=== PATIENT | male | born 2005 | race African-American/Black ===

== ENCOUNTER 2023-02-25 20:05 | Emergency (ER) | payer MEDICAID, OTHER ==
[~2023-02-25] VITALS: Ht 172.7 cm; Wt 63.7 kg
[2023-02-25 20:13] VITALS: TEMP 98.9; O2SAT 99
[2023-02-25 20:42] LABS: CLARITY URINE CLEAR (CLEAR); COLOR URINE YELLOW (YELLOW); KETONES URINE 2+ (NEGATIVE); LEUKOCYTE ESTERASE URINE NEGATIVE (NEGATIVE); NITRITE URINE NEGATIVE (NEGATIVE); OCCULT BLOOD URINE NEGATIVE (NEGATIVE); PROTEIN URINE 1+ (NEGATIVE); SPECIFIC GRAVITY URINE 1.035 (1.005-1.030)
[2023-02-25 21:10] LABS: BASOPHILS % 0.8 % (0.0-2.0); EOSINOPHILS % 0.9 % (0.0-5.0); HEMOGLOBIN. 14.6 g/dL (14.0-18.0); LYMPHOCYTES % 27.8 % (20.0-50.0); MEAN CORPUSCULAR HEMOGLOBIN 32.2 pg (28.0-32.0); MEAN CORPUSCULAR VOLUME 92.4 fL (80.0-94.0); MEAN PLATELET VOLUME 7.5 fl (7.4-10.4); MONOCYTES % 8.5 % (2.0-8.0); PLATELET 217 x1000/uL (130-400); RED BLOOD CELL COUNT 4.55 mill/uL (4.7-6.1); RED CELL DISTRIBUTION WIDTH 13.7 % (11.6-14.6)
[2023-02-25 21:11] LABS: CHLORIDE 100 mEq/L (98-107)
[2023-02-25] MEDS ORDERED: ONDANSETRON HCL 4MG/2ML INJ IM ONE (23:45)
[2023-02-25] MEDS ORDERED: KETOROLAC 30MG/ML VIAL IM ONE (23:45)
[2023-02-25] MEDS ORDERED: FAMOTIDINE 20MG TABLET PO ONE (23:45)
[2023-02-26] MEDS ORDERED: FAMO-135 MT (00:12)
[2023-02-26 00:37] VITALS: BP 140/81; PULSE 76; RESP 18
[2023-02-27] MEDS ORDERED: FAMO-135 MT (03:10)
== END 2023-02-26 00:54 | disposition home or self-care (01) ==
LOC: ER 20:17
DX: R06.02 Shortness of breath (principal); R11.2 Nausea with vomiting, unspecified; R19.7 Diarrhea, unspecified; Z20.822 Contact with and (suspected) exposure to COVID-19
CPT/HCPCS: 99284; 71045; 80053; 81003; 83690; 85025; 36415; 87426; 96372; C9803; J1885; J2405

== ENCOUNTER 2023-02-26 20:36 | Emergency (ER) | payer MEDICAID, OTHER ==
[~2023-02-26] VITALS: Ht 162.6 cm; Wt 64.0 kg
[~2023-02-26 20:36] MED LIST: FAMO-135 MT
[2023-02-26 20:40] VITALS: BP 153/72; O2SAT 98
[2023-02-27] MEDS ORDERED: MAGNESIUM/ALUMINUM HYDROXIDE/SIMETHICONE 30ML UDC PO STA (00:46)
[2023-02-27] MEDS ORDERED: ONDANSETRON 4MG ODT PO STA (00:46)
[2023-02-27] MEDS ORDERED: FAMOTIDINE 20MG TABLET PO ONE (01:00)
[2023-02-27] MEDS ORDERED: FAMO-135 MT (03:10)
[2023-02-27 03:25] VITALS: PULSE 70; RESP 14; TEMP 98.4
== END 2023-02-27 03:26 | disposition home or self-care (01) ==
LOC: ER 20:36
DX: R10.13 Epigastric pain (principal)
CPT/HCPCS: 99284; 74176; Q0162

== ENCOUNTER 2023-05-09 22:12 | Emergency (ER) | payer MEDICAID ==
[~2023-05-09] VITALS: Ht 172.7 cm; Wt 62.5 kg
[2023-05-09 22:19] VITALS: PULSE 105
[2023-05-09 22:26] VITALS: BP 128/79; RESP 14; TEMP 98; O2SAT 100
[2023-05-10] MEDS ORDERED: CYCL5TAB PO (01:13)
[2023-05-10] MEDS ORDERED: NAPR-681 PO (01:13)
== END 2023-05-10 01:30 | disposition home or self-care (01) ==
LOC: ER 22:12
DX: S10.93XA Contusion of unspecified part of neck, initial encounter (principal); S00.93XA Contusion of unspecified part of head, initial encounter; Y08.89XA Assault by other specified means, initial encounter; Y93.89 Activity, other specified; Y92.89 Other specified places as the place of occurrence of the external cause; Y99.8 Other external cause status
CPT/HCPCS: 99283

== ENCOUNTER 2023-06-12 20:47 | Emergency (ER) | payer MEDICAID, OTHER ==
[~2023-06-12] VITALS: Ht 175.3 cm; Wt 65.1 kg
[~2023-06-12 20:47] MED LIST changes: +CYCL5TAB PO; +NAPR-681 PO
[2023-06-12 21:02] VITALS: BP 126/76; PULSE 94; RESP 16; TEMP 98.9; O2SAT 99
== END 2023-06-12 22:53 | disposition home or self-care (01) ==
LOC: ER 20:47
DX: L98.9 Disorder of the skin and subcutaneous tissue, unspecified (principal)
CPT/HCPCS: 99284

== ENCOUNTER 2023-08-29 01:34 | Emergency (ER) | payer MEDICAID, OTHER ==
[~2023-08-29] VITALS: Ht 175.3 cm; Wt 77.0 kg
[2023-08-29 01:38] VITALS: O2SAT 99
[2023-08-29] MEDS ORDERED: IBUPROFEN 600MG TABLET PO ONE (05:30)
[2023-08-29] MEDS ORDERED: ACETAMINOPHEN 325MG TABLET PO ONE (05:30)
[2023-08-29] MEDS ORDERED: NAPR-1129 MT (06:21)
[2023-08-29 06:40] VITALS: BP 121/69; PULSE 84; RESP 18; TEMP 98.2
== END 2023-08-29 06:40 | disposition home or self-care (01) ==
LOC: ER 01:34
DX: S99.922A Unspecified injury of left foot, initial encounter (principal); S99.921A Unspecified injury of right foot, initial encounter; W13.9XXA Fall from, out of or through building, not otherwise specified, initial encounter; Y93.89 Activity, other specified; Y92.89 Other specified places as the place of occurrence of the external cause; Y99.8 Other external cause status
CPT/HCPCS: 73630; 99283

== ENCOUNTER 2023-09-22 02:10 | Emergency (ER) | payer MEDICAID ==
[~2023-09-22] VITALS: Ht 182.9 cm; Wt 70.0 kg
[~2023-09-22 02:10] MED LIST changes: +NAPR-1129 MT
[2023-09-22 02:14] VITALS: BP 128/77; PULSE 95; RESP 18; TEMP 98; O2SAT 100
== END 2023-09-22 02:43 | disposition left against medical advice (07) ==
LOC: ER 02:10
DX: R45.851 Suicidal ideations (principal); Z53.21 Procedure and treatment not carried out due to patient leaving prior to being seen by health care provider
CPT/HCPCS: 99283

== ENCOUNTER 2024-05-08 16:44 | Emergency (ER) | payer MEDICAID, OTHER ==
[~2024-05-08] VITALS: Ht 170.2 cm; Wt 63.0 kg
[2024-05-08 16:51] VITALS: BP 107/51; PULSE 65; RESP 16; TEMP 98.1; O2SAT 97; O2SAT 99
[2024-05-08] MEDS ORDERED: DOXY100C5 MT (17:48)
[2024-05-08] MEDS ORDERED: IBUP-2029 MT (17:48)
[2024-05-08] MEDS: CEFTRIAXONE SODIUM 500MG VIAL IM ONE (18:14)
== END 2024-05-08 19:04 | disposition home or self-care (01) ==
LOC: ER 16:44
DX: Z11.3 Encounter for screening for infections with a predominantly sexual mode of transmission (principal)
CPT/HCPCS: 96372; 99283; J0696; Z7610

== ENCOUNTER 2024-07-25 13:24 | Emergency (ER) | payer MEDICAID, OTHER ==
[~2024-07-25] VITALS: Ht 175.3 cm; Wt 72.6 kg
[~2024-07-25 13:24] MED LIST changes: -CYCL5TAB PO; +CYCL5TAB3 PO; +DOXY100C5 MT; +IBUP-2029 MT
[2024-07-25 13:39] VITALS: O2SAT 100
[2024-07-25 13:42] VITALS: BP 131/97; PULSE 80; RESP 16; TEMP 36.83628; O2SAT 100
== END 2024-07-25 17:25 | disposition home or self-care (01) ==
LOC: ER 13:24
DX: S69.91XA Unspecified injury of right wrist, hand and finger(s), initial encounter (principal); Z79.899 Other long term (current) drug therapy; X58.XXXA Exposure to other specified factors, initial encounter; Y93.89 Activity, other specified; Y92.89 Other specified places as the place of occurrence of the external cause; Y99.8 Other external cause status
CPT/HCPCS: 73130; 99283

== ENCOUNTER 2024-12-13 14:23 | Emergency (ER) | payer MEDICAID ==
[~2024-12-13] VITALS: Ht 177.8 cm; Wt 68.0 kg
[2024-12-13 14:31] VITALS: O2SAT 98
[2024-12-13] MEDS ORDERED: NEOM1PAC6 TP (14:43)
[2024-12-13] MEDS ORDERED: MUPI22OI2 TP (14:51)
[2024-12-13 15:15] VITALS: BP 128/60; PULSE 92; RESP 14; TEMP 37; O2SAT 98
== END 2024-12-13 15:15 | disposition home or self-care (01) ==
LOC: ER 14:45
DX: L73.9 Follicular disorder, unspecified (principal); L29.89 Other pruritus
CPT/HCPCS: 99283

== ENCOUNTER 2025-04-27 23:23 | Emergency (ER) | payer MEDICAID ==
[~2025-04-27] VITALS: Ht 175.3 cm; Wt 75.0 kg
[~2025-04-27 23:23] MED LIST changes: +IBUP-1455 MT; -IBUP-2029 MT; +MUPI22OI2 TP; +NEOM1PAC6 TP
[2025-04-27 23:57] VITALS: TEMP 36.9; O2SAT 99
[2025-04-28 01:21] LABS: CLARITY URINE CLEAR (CLEAR); COLOR URINE YELLOW (YELLOW); GLUCOSE URINE NEGATIVE (NEGATIVE); KETONES URINE NEGATIVE (NEGATIVE); LEUKOCYTE ESTERASE URINE NEGATIVE (NEGATIVE); NITRITE URINE NEGATIVE (NEGATIVE); OCCULT BLOOD URINE NEGATIVE (NEGATIVE); PH URINE 7.0 (4.5-8.0); PROTEIN URINE NEGATIVE (NEGATIVE); SPECIFIC GRAVITY URINE 1.005 (1.005-1.030); UROBILINOGEN URINE 0.2 E.U./dL (0.2-1.0)
[2025-04-28] MEDS: MAGNESIUM/ALUMINUM HYDROXIDE/SIMETHICONE 30ML UDC PO ONE (01:22)
[2025-04-28 02:14] LABS: BASOPHILS % 0.7 % (0.0-2.0); EOSINOPHILS % 0.9 % (0.0-5.0); HEMATOCRIT. 41.3 % (42.0-52.0); HEMOGLOBIN. 14.0 g/dL (14.0-18.0); LYMPHOCYTES % 32.6 % (20.0-50.0); MEAN PLATELET VOLUME 7.4 fl (7.4-10.4); MONOCYTES % 5.3 % (2.0-8.0); NEUTROPHILS % 60.5 % (40.0-76.0); PLATELET 230 x1000/uL (130-400); RED BLOOD CELL COUNT 4.35 mill/uL (4.7-6.1); RED CELL DISTRIBUTION WIDTH 13.2 % (11.6-14.6)
[2025-04-28 02:28] LABS: CREATININE 0.8 mg/dL (0.6-1.3)
[2025-04-28 02:29] LABS: UREA NITROGEN BLOOD 7 mg/dL (9-23)
[2025-04-28 02:43] VITALS: BP 122/63; PULSE 50; RESP 12; O2SAT 100
[2025-04-28] MEDS ORDERED: POTASSIUM CHLORIDE 20MEQ/PACKET PO ONE (02:45)
== END 2025-04-28 02:44 | disposition home or self-care (01) ==
LOC: ER 23:23
DX: R10.33 Periumbilical pain (principal)
CPT/HCPCS: 36415; 74018; 80048; 81003; 85025; 99284